=== PATIENT | female | born 1965 | race Caucasian/White ===

== ENCOUNTER 2018-11-11 17:14 | Emergency (ER) | payer SELFPAY ==
[~2018-11-11 17:14] MED LIST: Iopamidol 370 76% 100 ML VIAL ONE
[2018-11-11] MEDS ORDERED: Acetaminophen 325 MG TAB ONE (17:34)
[2018-11-11] MEDS ORDERED: Sodium Chloride 0.9% 100 ML ONE (17:34)
[2018-11-11] MEDS ORDERED: Sodium Chloride 0.9% 2,000 ML ONE (17:34)
[2018-11-11] MEDS ORDERED: Piperacillin/Tazobactam 4.5 GM VIAL ONE (17:34)
--- NOTE | 2018-11-11 17:44 | RAD ---
FPortable chest radiograph: 11/11/2018 COMPARISON: None HISTORY:Chest pain FINDINGS: Mild increased linear interstitial density. No pneumothorax, pleural fluid, focal consolida tion, or alveolar edema. IMPRESSION: No acute findings.
[2018-11-11 18:13] LABS: Bilirubin Negative (Negative); Blood, Urine Negative (Negative); Clarity Clear (Clear); Glucose, Urine (Dipstick) Negative (Negative); Leukocyte Negative (Negative); Nitrite Negative (Negative); Protein, Urine (Dipstick) Negative (Neg-Trace); Urobilinogen 0.2 mg/dL (0.2-1.0); pH, Urine 5.5 (5.0-9.0)
[2018-11-11 18:14] LABS: #Basophils 0.1 thou/uL (0.0-0.2); #Eosinphils 0.1 thou/uL (0.0-0.7); #Lymphocytes 1.4 thou/uL (1.20-3.40); #Monocytes 0.6 thou/uL (0.11-0.59); #Neutrophils 11.9 thou/uL (1.40-6.50); %Eosinophils 0.4 % (0.0-10.0); %Lymphocytes 10.2 % (21.0-51.0); %Monocytes 4.4 % (0.0-10.0); %Neutrophils 84.1 % (42.0-75.0); Hemoglobin 13.8 g/dL (12.0-16.0); Mean Corpuscular Hemoglobin 28.6 pg (27.0-31.0); Mean Corpuscular Volume 84.2 fL (78.0-98.0); Mean Platelet Volume 6.3 fL (7.4-10.4); Platelet Count 198 thou/uL (130-400); RBC Distribution Width 11.9 % (11.5-14.5); Red Blood Cell (RBC) Count 4.83 mill/uL (4.20-5.40); White Blood Cell (WBC) Count 14.1 thou/uL (4.8-10.8)
[2018-11-11 18:16] LABS: Specific Gravity, Urine 1.008 (1.002-1.036)
[2018-11-11 18:23] LABS: ALT (SGPT) 432 U/L (8-55); AST (SGOT) 419 U/L (5-34); Albumin 4.3 g/dL (3.5-5.0); Alkaline Phosphatase 223 U/L (40-150); Anion Gap 18 mmol/L (10-20); BUN (Urea Nitrogen) 10 mg/dL (9.8-20.1); Bilirubin, Total 0.7 mg/dL (0.2-1.2); CK (CPK) 20 U/L (29-168); Calc. Creatinine Clearance 0 mL/min (70-130); Calcium 8.9 mg/dL (7.8-10.44); Carbon Dioxide 22 mmol/L (22-29); Chloride 100 mmol/L (98-107); Estimated GFR-MDRD Greater than 90; Globulin 3.2 g/dL (2.4-3.5); Glucose 154 mg/dL (70-105); Potassium 3.2 mmol/L (3.5-5.1); Protein, Total 7.5 g/dL (6.0-8.3); Sodium 137 mmol/L (136-145)
[2018-11-11 18:35] LABS: Lipase 1416 U/L (8-78)
--- NOTE | 2018-11-11 19:44 | CT ---
ABDOMEN CT WITH CONTRAST PELVIC CT WITH CONTRAST 11/11/18 HISTORY: Mid sternal chest pain, radiating to the back. Fever. Elevated white blood cell count. COMPARISON: None. FINDINGS: ABDOMEN CT: The lung bases are clear. Heart size is normal. No significant pericardial fluid. The visualized aort a demonstrates atherosclerosis. No aneurysmal dilatation. Portal vein is patent. There is mild enhancement of the gallbladder wall along with small amount of pericholecystic fluid. T here appears to be some mild enhancement of the common bile duct. The common bile duct diameter is wi thin normal limits, measuring 0.6 cm. The liver, spleen, and right adrenal gland are unremarkable. Th ere is a solid enhancing nodule in the left adrenal gland with a small focal calcification, measuring 2.0 x 2.2 cm. There appears to be inflammatory change along the head, body and tail of the pancreas, suggesting pancreatitis. No evidence of abscess or pseudocyst. There are small foci of air along the course of the head of the pancreas and third portion of the duodenum. The air is presumed to be asso ciate with the duodenum and may represent two small duodenal diverticula measuring approximately 7 an d 9 mm. There are a few scattered nonspecific peripancreatic lymph nodes. No retrocrural or periporta l lymphadenopathy. There are slightly prominent gastrohepatic lymph nodes. There is no mesenteric mass, free air or free fluid. There are a few scattered nonspecific mesenteric lymph nodes. Limited evaluation of the alimentary canal by lack of oral contrast. Slight mucosa prominence of the second and third portion of the duodenum may be reactive secondary to adjacent pancreatitis. Remainin g small bowel loops are unremarkable. Ileocecal junction is normal. Normal caliber appendix. Scattere d fecal material in a nondistended, nondilated colon. CT PELVIS: No mass, lymphadenopathy, free air or free fluid. No lytic or blastic lesions in the osseous structur es. IMPRESSION: 1. Inflammatory change centered about the pancreas suggesting pancreatitis. No evidence of a olivares creatic cyst or pseudocyst. No evidence of abscess. Correlate with laboratory values. 2. Probable two small duodenal diverticula involving the third portion of the duodenum. Inflamma tory change of the associated duodenum, adjacent to the head of the pancreas is presumed to be reacti ve. 3. Abnormal enhancement involving the intra and extrahepatic biliary system. Significance is unc ertain. 4. Enhancing mass in the left adrenal gland with punctate calcification, incompletely evaluated. POS: PPP
[2018-11-11] MEDS ORDERED: Sodium Chloride 0.9% 1,000 ML ONE (19:52)
[2018-11-11] MEDS ORDERED: Morphine 4 MG/ML VIAL ONE (19:52)
[2018-11-11] MEDS ORDERED: Ondansetron PF 4 MG/2 ML Vial ONE (19:52)
== END 2018-11-11 20:07 | disposition short-term general hospital (02) ==
LOC: MADERS 17:14
DX: A41.9 Sepsis, unspecified organism (principal); K85.90 Acute pancreatitis without necrosis or infection, unspecified; G89.29 Other chronic pain; E11.9 Type 2 diabetes mellitus without complications; K21.9 Gastro-esophageal reflux disease without esophagitis; E78.5 Hyperlipidemia, unspecified; I10 Essential (primary) hypertension; F41.9 Anxiety disorder, unspecified; F17.290 Nicotine dependence, other tobacco product, uncomplicated; Z79.899 Other long term (current) drug therapy
CPT/HCPCS: 36415; 71045; 74177; 80053; 81003; 82550; 83605; 83690; 83880; 84484; 85025; 85379; 87040; 87086; 93005; 94760; 96361; 96365; 96375; J2270; J2405; J2543; J7050; Q9967